=== PATIENT | female | born 1990 | race Caucasian/White ===

== ENCOUNTER 2020-05-21 13:47 | Observation (INO) | payer BC ==
[~2020-05-21] VITALS: Ht 170.2 cm; Wt 107.0 kg
[2020-05-21] MEDS: LR 1,000 ML IV SCH ×2 (17:00→20:25)
[2020-05-21] MEDS ORDERED: TERBUTALINE SULFATE 1 MG/ML VIAL SUBCUT ONE (17:00)
== END 2020-05-21 20:40 | disposition home or self-care (01) ==
LOC: SPU 13:47
PROVIDERS: ADMIT Specialist; ATTEND Specialist
DX: O62.9 Abnormality of forces of labor, unspecified (principal); O46.93 Antepartum hemorrhage, unspecified, third trimester; Z3A.34 34 weeks gestation of pregnancy
CPT/HCPCS: 81002; 96360; 96361; 96372; G0378; J3105; 59899

== ENCOUNTER 2020-06-13 08:07 | Inpatient (IN) | payer BC ==
[~2020-06-13] VITALS: Ht 170.2 cm; Wt 108.9 kg
[2020-06-13] MEDS: OXYTOCIN/0.9 % SODIUM CHLORIDE 1,000 ML IV SCH ×2 (02:00→17:39)
[2020-06-13] MEDS ORDERED: TERBUTALINE SULFATE 1 MG/ML VIAL ONE (08:13)
[2020-06-13] MEDS ORDERED: LR 1,000 ML IV ONE (08:45)
[2020-06-13] MEDS ORDERED: CEFAZOLIN 2 GM IVPB PREMIX 50 ML IV ONE (08:45)
[2020-06-13 09:00] LABS: BASOPHILS % (AUTO) 0.2 % (0.0-2.0); EOSINOPHILS # (AUTO) 0.1 K/uL (0.0-0.4); EOSINOPHILS % (AUTO) 0.8 % (0.0-4.0); HEMATOCRIT 34.5 % (36-48); HEMOGLOBIN 11.4 g/dL (12.0-16.0); LYMPHOCYTES # (AUTO) 1.8 K/uL (1.0-5.5); LYMPHOCYTES % (AUTO) 18.2 % (20.5-51.5); MEAN CORPUSCULAR HEMOGLOBIN 28 pg (27-31); MEAN CORPUSCULAR HGB CONC 33 % (32-36); MEAN CORPUSCULAR VOLUME 86 fL (79.0-98.0); MONOCYTES # (AUTO) 0.6 K/uL (0.0-1.0); MONOCYTES % (AUTO) 5.9 % (1.7-9.3); NEUTROPHILS # (AUTO) 7.4 K/uL (1.8-7.7); NEUTROPHILS % (AUTO) 74.9 % (40.0-70.0); PLATELET COUNT (AUTO) 221 K/uL (130-430); RED BLOOD CELL COUNT(AUTO) 4.02 MIL/uL (4.2-6.2); RED CELL DISTRIBUTION WIDTH 13.4 % (9.0-15.0); WHITE BLOOD COUNT (AUTO) 9.9 K/uL (4.8-10.8)
[2020-06-13] MEDS ORDERED: DIPHENHYDRAMINE INJ 50 MG/ML VIAL IVP PRN (09:15)
[2020-06-13] MEDS ORDERED: NALOXONE HCL 0.4 MG/ML AMP (NARCAN) IVP PRN ×3 (09:15→10:15)
[2020-06-13] MEDS ORDERED: LR 1,000 ML IV SCH ×2 (09:15→10:15)
[2020-06-13] MEDS ORDERED: ONDANSETRON HCL 4 MG/2 ML VIAL IVP PRN (09:15)
[2020-06-13] MEDS ORDERED: MEPERIDINE HCL/PF 25 MG/ML DISP.SYRIN IVP PRN ×2 (09:15)
[2020-06-13] MEDS ORDERED: MORPHINE SULFATE 10MG/10ML PF AMP SP SCH (09:30)
[2020-06-13] MEDS ORDERED: TERBUTALINE SULFATE 1 MG/ML VIAL SUBCUT ONE (10:00)
[2020-06-13] MEDS ORDERED: MEASLES,MUMPS&RUBELLA VACC/PF 12500 UNIT/0.5 ML VIAL SUBQ PRN (10:15)
[2020-06-13] MEDS ORDERED: OXYCODONE/ACETAMINOPHEN 5-325 TABLET PO PRN (10:15)
[2020-06-13] MEDS ORDERED: DIPH-TET-PERTUS Vaccine 0.5 ML VIAL (ADACEL) I.M. PRN (10:15)
[2020-06-13] MEDS ORDERED: ANUSOL 1 EA SUPP.RECT (PREPARATION H) RC PRN (10:15)
[2020-06-13] MEDS ORDERED: TEMAZEPAM 15 MG CAPSULE PO PRN (10:15)
[2020-06-13] MEDS ORDERED: LANOLIN 7 GM OINT. TP PRN (10:15)
[2020-06-13] MEDS ORDERED: HYDROcodone/ACETAMIN 5-325 MG TAB (NORCO/ VICODIN) PO PRN (10:15)
[2020-06-13] MEDS ORDERED: OXYCODONE/ACETAMINOPHEN *10*mg/325 mg TABLET PO PRN (10:15)
[2020-06-13] MEDS ORDERED: SENNOSIDES/DOCUSATE SODIUM 1 TAB TABLET(SENOKOT-S) PO PRN (10:15)
[2020-06-13] MEDS ORDERED: RHO(D) IMMUNE GLOBULIN/MALTOSE 1500 UNITS/1.3 ML (WINHRO) IM PRN (10:15)
[2020-06-13] MEDS ORDERED: BISACODYL 10 MG/SUPPOSITORY RC PRN (10:15)
[2020-06-13 13:25] VITALS: BP_SYST 128
[2020-06-13] MEDS: CEFAZOLIN 1 GM IVPB PREMIX 50 ML IV SCH (17:38)
[2020-06-13] MEDS: KETOROLAC TROMETHAMINE 30 MG VIAL IVP SCH (18:07)
[2020-06-14] MEDS: CEFAZOLIN 1 GM IVPB PREMIX 50 ML IV SCH ×2 (00:03→06:14)
[2020-06-14] MEDS: KETOROLAC TROMETHAMINE 30 MG VIAL IVP SCH ×3 (00:04→12:45)
[2020-06-14 07:44] LABS: BASOPHILS % (AUTO) 0.3 % (0.0-2.0); EOSINOPHILS # (AUTO) 0.1 K/uL (0.0-0.4); EOSINOPHILS % (AUTO) 0.7 % (0.0-4.0); HEMATOCRIT 29.5 % (36-48); LYMPHOCYTES # (AUTO) 1.5 K/uL (1.0-5.5); LYMPHOCYTES % (AUTO) 14.4 % (20.5-51.5); MEAN CORPUSCULAR HEMOGLOBIN 29 pg (27-31); MEAN CORPUSCULAR HGB CONC 34 % (32-36); MEAN CORPUSCULAR VOLUME 85 fL (79.0-98.0); MONOCYTES # (AUTO) 0.8 K/uL (0.0-1.0); MONOCYTES % (AUTO) 7.8 % (1.7-9.3); NEUTROPHILS # (AUTO) 8.1 K/uL (1.8-7.7); NEUTROPHILS % (AUTO) 76.8 % (40.0-70.0); PLATELET COUNT (AUTO) 207 K/uL (130-430); RED BLOOD CELL COUNT(AUTO) 3.45 MIL/uL (4.2-6.2); RED CELL DISTRIBUTION WIDTH 13.3 % (9.0-15.0); WHITE BLOOD COUNT (AUTO) 10.5 K/uL (4.8-10.8)
[2020-06-14] MEDS: SIMETHICONE 80 MG TAB.CHEW PO PRN ×3 (12:43→23:44)
[2020-06-14] MEDS: DOCUSATE SODIUM 100 MG CAPSULE PO PRN ×2 (18:13→23:45)
[2020-06-14] MEDS: IBUPROFEN 600 MG TABLET PO SCH ×2 (18:14→23:45)
[2020-06-15] MEDS: DOCUSATE SODIUM 100 MG CAPSULE PO PRN (05:44)
[2020-06-15] MEDS: IBUPROFEN 600 MG TABLET PO SCH ×2 (05:45→12:20)
[2020-06-15] MEDS: SIMETHICONE 80 MG TAB.CHEW PO PRN (12:21)
== END 2020-06-15 15:04 | disposition home or self-care (01) | DRG 785 ==
LOC: SPU 08:07 → EDUNIT# 06-30 12:30
PROVIDERS: ADMIT Specialist; ATTEND Specialist
PROC: 0UL70CZ Occlusion of Bilateral Fallopian Tubes with Extraluminal Device, Open Approach (ICD-10-PCS; 2020-06-13)
PROC: 10D00Z1 Extraction of Products of Conception, Low, Open Approach (ICD-10-PCS; principal; 2020-06-13 09:27)
DX: O34.211 Maternal care for low transverse scar from previous cesarean delivery (principal); Z20.822 Contact with and (suspected) exposure to COVID-19; Z3A.37 37 weeks gestation of pregnancy; Z37.0 Single live birth; Z30.2 Encounter for sterilization
CPT/HCPCS: 36415; 85025; 86592; 86886; 86900; 86901; 94760; J0690; J1885; J2590; J3105